=== PATIENT | female | born 1955 | race Caucasian/White ===

== ENCOUNTER → 2020-08-06 14:36 | Outpatient (CLI) | payer MEDICARE, SELFPAY ==
--- NOTE | ~2020-08-06 | XR_ITS ---
EXAMINATION: XR wrist LT min 3V DATE: 08/06/2020 15:03 INDICATION: Left wrist pain TECHNIQUE: Posteroanterior, ulnar deviation, oblique, and lateral views of the left wrist were obtain ed. COMPARISON: none FINDINGS: 3 mm ulnar minus variance. Alignment is otherwise normal. No fracture. Polyarticular osteoarthritis, moderate severity at the fifth proximal and distal interphalangeal joints and mild at the wrist, maryuri caphe, first carpometacarpal and multiple metacarpophalangeal joints. No cortical erosions to suggest an inflammatory arthritis. Diffuse osteopenia. Soft tissues are unremarkable. IMPRESSION: 1. Mild polyarticular osteoarthritis at the left wrist and carpus with moderate osteoarthritis at the interphalangeal joints in the fifth digit. Reviewed, dictated and finalized at location A. 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
== END ==
PROVIDERS: PCP Family Medicine; Visit Provider Physician Assistant
DX: M19.032 Primary osteoarthritis, left wrist (principal); M19.042 Primary osteoarthritis, left hand
CPT/HCPCS: 73110

== ENCOUNTER → 2020-10-14 11:07 | Outpatient (CLI) | payer MEDICARE, SELFPAY ==
--- NOTE | ~2020-10-14 | MM_ITS ---
EXAMINATION: MM screening [facility] BI w princess HISTORY: Screening TECHNIQUE: Craniocaudal and mediolateral oblique 3-D tomosynthesis images were obtained and synthetic 2-D images were generated. CAD analysis was submitted and interpreted. COMPARISON: Comparison to multiple prior studies sequentially, with oldest reviewed study dated 01/14. BREAST PARENCHYMAL COMPOSITION: The breasts are almost entirely fatty. FINDINGS: There are benign bilateral breast calcifications. There is no evidence of suspicious mass, calcification, or architectural distortion to suggest malignancy in either breast. There has been no suspicious interval change. IMPRESSION: 1. No mammographic evidence of malignancy. 2. Recommend routine screening mammography in one year. BI-RADS Category 2: Benign finding(s). Reviewed, dictated and finalized at location A. 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
== END ==
PROVIDERS: PCP Family Medicine; Visit Provider Family Medicine
DX: Z12.31 Encounter for screening mammogram for malignant neoplasm of breast (principal)
CPT/HCPCS: 77063; 77067

== ENCOUNTER → 2021-07-23 09:49 | Outpatient (CLI) | payer MEDICARE, SELFPAY ==
--- NOTE | ~2021-07-23 | XR_ITS ---
EXAMINATION: XR lumbar spine 2-3V DATE: 07/23/2021 10:16 INDICATION: Low back pain TECHNIQUE: Anteroposterior and lateral views of the lumbar spine, and cone-down lateral view of the l umbosacral junction were obtained. COMPARISON: None. FINDINGS: Bone alignment is normal. There appears to be an age-indeterminate superior endplate deform ity of the L2 vertebral body. There is mild loss of intervertebral disc space height at L2-3 and L5-S 1. Small degenerative osteophytes project from the anterior endplates of multiple vertebral bodies. IMPRESSION: 1. Possible age-indeterminate compression fracture of L2. Reviewed, dictated and finalized at location A.
== END ==
PROVIDERS: PCP Family Medicine; Visit Provider Family Medicine
DX: M54.50 Low back pain, unspecified (principal)
CPT/HCPCS: 72100

== ENCOUNTER 2021-07-30 00:42 | Day surgery (SDC) | payer MEDICARE, SELFPAY ==
[2021-07-10 13:05] VITALS: BMI 55.0
--- NOTE | 2021-07-29 13:05 | PM.HPGS ---
History of Present Illness History of Present Illness Consent: Risks, benefits, and alternatives have been discussed and questions answered. Patient agrees to proceed with procedure. Chief complaint: neoplasm screening Narrative: Faina Cuellar is a 65 year old female who was referred for colon cancer screening. This is her 1st colonoscopy Review of Systems Review of Systems: All systems reviewed & are unremarkable except as noted in HPI and below PMFSH Past Medical History Medical History DVT (deep venous thrombosis) Glucose intolerance (impaired glucose tolerance) Hyperlipidemia Hypertension Lumbar compression fracture Obesity, morbid, BMI 50 or higher Supraventricular tachycardia Unspecified asthma, uncomplicated Unspecified osteoarthritis, unspecified site Vitamin deficiency, unspecified Surgical History Surgical History History of knee replacement right and left: 2015 Family History Family History Mother Patient's mother is in good health Diabetes mellitus Hypertension Father Family history of malignant neoplasm Social History Social History Second hand tobacco smoke exposure: No Alcohol intake: current Alcohol use details: rare but occasionally Substance use: never Substance use type: does not use Living arrangements: with family Gender identity (if verbalized by the patient): Female Spiritual care concerns: No Meds Home Medications and Allergies Home Medications Medication Instructions Recorded Confirmed Type diltiazem HCl 180 mg capsule,24 180 mg PO DAILY #90 cap 03/10/21 07/10/21 Rx hr,extended release lisinopril 10 1 tablet PO DAILY #90 tablet 03/10/21 07/10/21 Rx mg-hydrochlorothiazide 12.5 mg tablet aspirin 325 mg tablet 325 mg PO DAILY 05/26/21 07/10/21 History meloxicam 15 mg tablet 15 mg PO DAILY #90 tablet 05/26/21 07/10/21 Rx baclofen 10 mg tablet 10 mg PO QHS #20 tablet 07/23/21 07/23/21 Rx Allergies Allergy/AdvReac Type Severity Reaction Status Date / Time Penicillins Allergy Unknown rash Verified 07/30/21 10:17 Exam Resp: Auscultation: clear to auscultation bilaterally Cardio: Rate: regular rate Rhythm: regular rhythm GI: GI Palp: Yes Soft to palpation and No Tenderness to palpation present (GI) Assessment and Plan Assessment and plan (1) Colon cancer screening: Code(s): Z12.11 - Encounter for screening for malignant neoplasm of colon Status: Acute Assessment and Plan: Colonoscopy with possible biopsy or polypectomy or cautery or injection of substances.
[2021-07-30 10:18] VITALS: BP 126/78; PULSE 78; RESP 22; TEMP 36.8; O2SAT 97
[2021-07-30] MEDS: LACTATED RINGERS 1,000 ML 150 ML IV CONT (10:30)
--- NOTE | 2021-07-30 10:49 | P.PNAN_ITS ---
Anes - Initial Pre Proc Eval Procedure: Operation Date: 07/30/21 11:00 Proposed Procedures p Screening Colonoscopy - Hayden Lanza MD Date/Time: 07/30/21 10:49 Surgeon: Hayden Lanza MD Pre Op Diagnosis: neoplasm screening Patient Data Age: 65 Gender: F Height: 1.57 m Weight: 136.6 kg Last Vital Signs Temp 98.2 F 07/30/21 10:18 Pulse 78 07/30/21 10:18 Resp 22 H 07/30/21 10:18 BP 126/78 07/30/21 10:18 Pulse Ox 97 07/30/21 10:18 Allergies Allergy/AdvReac Type Severity Reaction Status Date / Time Penicillins Allergy Unknown rash Verified 07/30/21 10:17 Home Medications Medication Instructions Recorded Confirmed Type diltiazem HCl 180 mg capsule,24 180 mg PO DAILY #90 cap 03/10/21 07/10/21 Rx hr,extended release lisinopril 10 1 tablet PO DAILY #90 tablet 03/10/21 07/10/21 Rx mg-hydrochlorothiazide 12.5 mg tablet aspirin 325 mg tablet 325 mg PO DAILY 05/26/21 07/10/21 History meloxicam 15 mg tablet 15 mg PO DAILY #90 tablet 05/26/21 07/10/21 Rx baclofen 10 mg tablet 10 mg PO QHS #20 tablet 07/23/21 07/23/21 Rx Patient hx anesthesia problems: none Family hx anesthesia problems: none Results Review: All pre-operative results and documents have been reviewed as part of the pre-operative evaluation. [facility] Past Medical History Medical History (Updated 07/28/21 @ 14:06 by Cayla Barry MD) DVT (deep venous thrombosis) Glucose intolerance (impaired glucose tolerance) Hyperlipidemia Hypertension Lumbar compression fracture Obesity, morbid, BMI 50 or higher Supraventricular tachycardia Unspecified asthma, uncomplicated Unspecified osteoarthritis, unspecified site Vitamin deficiency, unspecified Surgical History Surgical History History of knee replacement right and left: 2015 Family History Family History Mother Patient's mother is in good health Diabetes mellitus Hypertension Father Family history of malignant neoplasm Social History Social History (Reviewed 07/23/21 @ 08:29 by Nettie Vital Second hand tobacco smoke exposure: No Alcohol intake: current Alcohol use details: rare but occasionally Substance use: never Substance use type: does not use Living arrangements: with family Gender identity (if verbalized by the patient): Female Spiritual care concerns: No Anes - Eval Final PreProcedure Day of Procedure 07/30/21 10:49 Patient weight: super morbidly obese Lungs: clear to auscultation Airway: Mallampati scale class III Neurological: alert and oriented Last oral intake: >/= 8 hours ASA classification: IV Emergent: no Anesthetic plan: proceed Anesthesia type and monitoring: general GIVS and standard monitoring Results Review: All pre-operative results and documents have been reviewed as part of the pre-operative evaluation. Informed Consent: The patient's anesthetic plan and its attendant risks and benefits were discussed with the patient/family/POA. Questions were solicited and answers provided to the satisfaction of the patient/family/POA.
[2021-07-30 11:12] VITALS: BP 132/65; PULSE 110; RESP 22; O2SAT 96
[2021-07-30 11:21] VITALS: BP 105/73; PULSE 103; RESP 22; O2SAT 98
[2021-07-30 11:31] VITALS: BP 126/69; PULSE 89; RESP 22; O2SAT 99
== END 2021-07-30 11:50 | disposition home or self-care (01) ==
PROVIDERS: PCP Family Medicine; Visit Provider Internal Medicine Gastroenterology
PROC: 0DJD8ZZ Inspection of Lower Intestinal Tract, Via Natural or Artificial Opening Endoscopic (ICD-10-PCS; CPT 45378; principal; 2021-07-30 11:15)
DX: Z12.11 Encounter for screening for malignant neoplasm of colon (principal); K64.8 Other hemorrhoids; K57.30 Diverticulosis of large intestine without perforation or abscess without bleeding; Z79.82 Long term (current) use of aspirin; Z86.718 Personal history of other venous thrombosis and embolism; E78.5 Hyperlipidemia, unspecified; I10 Essential (primary) hypertension; I47.1 Supraventricular tachycardia; J45.909 Unspecified asthma, uncomplicated; M19.90 Unspecified osteoarthritis, unspecified site; E56.9 Vitamin deficiency, unspecified; E66.01 Morbid (severe) obesity due to excess calories; Z68.43 Body mass index [BMI] 50.0-59.9, adult
CPT/HCPCS: G0121; J2704; J7120

== ENCOUNTER 2021-08-03 12:19 | Outpatient (CLI) | payer MEDICARE, SELFPAY ==
--- NOTE | ~2021-08-03 | CT_ITS ---
EXAMINATION: CT lumbar spine wo con EXAM DATE: 08/03/2021 12:51 INDICATION: S32.000A - Wedge compression fracture of unspecified lumb.... Low back pain. TECHNIQUE: Spiral CT of the lumbar spine was performed without contrast. Axial, coronal and sagittal images lumbar spine were reviewed. The dose-length product (DLP) for this examination was 1151.56 m Gy-cm. The exposure was tailored according to patient size (auto mA exposure control), and iterativ e reconstruction (ASIR) was used as additional dose reduction technique. Correlation is made to lum r x-ray 07/23/2020. FINDINGS: Mild compression fracture superior endplate of L2 which appears chronic. There is moderate disc disease at L1-2, mild to moderate at L2-3, L3-4 and L5-S1. No spondylolysis. There are no osteoblastic or osteolytic lesions identified. There are no acute fractures identified. Level by level evaluation: T12-L1: There is a mild diffuse disc bulge. Facet arthropathy: None. Neural foraminal stenosis: No stenosis. Central canal stenosis: No stenosis. L1-L2: There is a mild diffuse disc bulge. Facet arthropathy: Mild. Neural foraminal stenosis: No stenosis. Central canal stenosis: Minimal. L2-L3: There is a mild diffuse disc bulge. Facet arthropathy: Moderate right, mild left. Neural foraminal stenosis: No stenosis. Central canal stenosis: Mild. L3-L4: There is a mild diffuse disc bulge. Facet arthropathy: Moderate bilateral. Neural foraminal stenosis: Mild to moderate right, mild left. Central canal stenosis: Mild to moderate. L4-L5: There is a mild diffuse disc bulge. Facet arthropathy: Moderate to severe. Neural foraminal stenosis: Mild to moderate left. Central canal stenosis: Mild. L5-S1: There is a mild diffuse disc bulge. Facet arthropathy: Moderate to severe. Neural foraminal stenosis: Mild to moderate left. Central canal stenosis: No stenosis. IMPRESSION: 1. Chronic L2 compression fracture. 2. Advanced lower lumbar facet arthropathy. 3. No acute findings. Reviewed, dictated and finalized at location A.
== END 2021-08-03 12:20 | disposition home or self-care (01) ==
LOC: ANHIMG 12:26
PROVIDERS: PCP Family Medicine; Visit Provider Family Medicine
DX: S32.010A Wedge compression fracture of first lumbar vertebra, initial encounter for closed fracture (principal); X58.XXXA Exposure to other specified factors, initial encounter
CPT/HCPCS: 72131

== ENCOUNTER 2021-08-18 16:12 | Outpatient (CLI) | payer MEDICARE, SELFPAY ==
--- NOTE | ~2021-08-18 | CT_ITS ---
EXAMINATION: CT abdomen pelvis w con DATE: 08/18/2021 17:31 INDICATION: Abdominal pain TECHNIQUE: Computed tomography (CT) of the abdomen and pelvis was performed with 100 mL Omnipaque-350 intravenous contrast. Automated exposure control and iterative reconstruction technique were employe d. The dose-length product was 1522.51 mGy-cm. COMPARISON: None FINDINGS: None discoid atelectasis at the lingula. Heart size is normal. No pericardial or pleural effusion. Ga llstone within the otherwise normal-appearing gallbladder. No dilation, wall thickening or pericholec ystic inflammatory stranding to suggest acute cholecystitis. Liver, spleen and bilateral adrenal glan ds are normal. There is subtle haziness to the fat surrounding the head of the otherwise normal-appea ring pancreas which could be seen with acute interstitial pancreatitis. Three nonenhancing cysts in t he right kidney the largest measuring 1.9 cm and 3 cm nonenhancing parapelvic cyst at the left renal hilum. There is moderate colonic diverticulosis with a sigmoid predominance. Suggestion of minimal in flammatory stranding round diverticula at the mid sigmoid colon equivocal for mild acute diverticulit is. Small bowel and appendix are normal. Bladder is normal. Calcifications within a 3.3 x 2.6 cm fibr oid at the right side of uterus which demonstrates age-related atrophy. Bilateral adnexa are normal f or age. No abscess or free intraperitoneal gas or fluid. No pathologically enlarged abdominal or pelv ic lymphadenopathy. chronic mild superior endplate compression fracture at L2. Mild to moderate lumba r spondylosis. There are bridging osteophytes at multiple levels in the spine, consistent with diffus e idiopathic skeletal hyperostosis (DISH). IMPRESSION: 1. Subtle haziness to the fat surrounding the head of the pancreas suspicious for acute interstitial pancreatitis. Correlate with amylase and lipase levels. 2. Cholelithiasis. 3. Diverticulosis with possible minimal inflammatory stranding surrounding a diverticulum at the mid sigmoid colon equivocal for mild acute radiographic uncomplicated diverticulitis. 4. Ventilated fibroid arising from the normal for age atrophic uterus. 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 Subtle haziness to the fat surrounding the head of the pancreas suspicious f or acute interstitial pancreatitis. Correlate with amylase and lipase levels. 2. Cholelithiasis. 3. Diverticulosis with possible minimal inflammatory stranding surrounding a di verticulum at the mid sigmoid colon equivocal for mild acute radiographic uncom plicated diverticulitis. 4. Ventilated fibroid arising from the normal for age atrophic uterus.
[2021-08-18 16:55] LABS: Estimated Glomerular Filt Rate > 60
[2021-08-18 17:54] LABS: Hemoglobin 12.6 g/dL (12.0-15.0); Mean Corpuscular HGB Conc 32.3 g/dl (32-36); Mean Corpuscular Hemoglobin 30.3 pg (26-34); Mean Corpuscular Volume 93.8 fl (80-100); Platelet Count Result 294 k/mm3 (150-375); Red Blood Count 4.16 M/mm3 (4.2-5.4); Red Cell Distribution Width 14.2 % (11.5-14.5); White Blood Count 10.6 K/mm3 (4.5-10.0)
[2021-08-18 18:11] LABS: Alanine Aminotransferase 16 U/L (4-35); Albumin Level 3.8 g/dL (3.5-5.1); Alkaline Phosphatase 77 U/L (38-126); Anion Gap 10 mmol/L (8-16); Aspartate Amino Transferase 20 U/L (14-36); Bilirubin,Total 0.8 mg/dL (0.2-1.3); Blood Urea Nitrogen 19 mg/dL (7-17); Calcium 8.9 mg/dL (8.4-10.2); Carbon Dioxide 26 mmol/L (22-30); Chloride 99 mmol/L (98-107); Estimated Glomerular Filt Rate > 60; Glucose 104 mg/dL (65-110); Lipase 117 U/L (23-300); Potassium 3.5 mmol/L (3.4-5.0); Sodium 135 mmol/L (137-145)
== END 2021-08-18 16:13 | disposition home or self-care (01) ==
LOC: ANHIMG 16:16
PROVIDERS: PCP Family Medicine; Visit Provider Family Medicine
DX: K80.20 Calculus of gallbladder without cholecystitis without obstruction (principal); K57.30 Diverticulosis of large intestine without perforation or abscess without bleeding
CPT/HCPCS: 74177; 80053; 83690; 85027; Q9967

== ENCOUNTER 2021-08-18 18:14 | Observation (INO) | payer MEDICARE, SELFPAY ==
--- NOTE | ~2021-08-18 | US_ITS ---
EXAMINATION: US abdomen limited EXAM DATE: 08/19/2021 09:55 INDICATION: Possible pancreatitis . TECHNIQUE: Multiple grayscale and Doppler images of the abdomen right upper quadrant were obtained (b y a technologist who performed the scan) and subsequently reviewed. There is no prior study for mag suther[place]. FINDINGS: The pancreatic head and body are normal in appearance. The pancreatic tail is not visualized. Please note that uncomplicated pancreatitis typically does not have ultrasound findings. The liver has norm al echogenicity and contour. There are no focal liver lesions identified. There is no evidence of intrahepatic biliary duct dilation. Portal venous flow was seen in the hepatopedal, normal direction and has normal Doppler waveform. No right-sided hydronephrosis. Common bile duct measures 4 mm, which is normal. The gallbladder wall is normal in thickness, with ex pected amount of distention. No sonographic evidence of pericholecystic fluid. There is cholelithia sis. Technologist performing exam reports patient did not demonstrate sonographic Paez's sign. P lease note that this sign is less reliable in patients who have received pain medication. IMPRESSION: 1. Cholelithiasis. Reviewed, dictated and finalized at location B. 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 Cholelithiasis.
[2021-08-18 18:31] VITALS: BP 142/114; PULSE 108; RESP 18; TEMP 36.6; O2SAT 98
[2021-08-18 20:27] VITALS: BP 127/61; PULSE 54; RESP 18; TEMP 36.6; O2SAT 98
--- NOTE | 2021-08-18 21:46 | ED.ABDPAIN ---
HPI - Abdominal Pain General Chief Complaint: Abdominal Pain Stated Complaint: sent from radiology for ?gallstones Time Seen by Provider: 08/18/21 21:10 Source: patient Mode of arrival: ambulatory Limitations: no limitations History of Present Illness HPI narrative: Patient is a 65-year-old female sent here by her primary care physician after an outpatient CT scan of her abdomen pelvis done today showing acute pancreatitis and acute diverticulitis according to patient. Patient states that she is been having upper abdominal pain for the past few days, 4 out of 10, dull, nonradiating. Patient denies any chest pain, shortness of breath, nausea, vomiting, diarrhea, fever or chills. Related Data Home Medications Medication Instructions Recorded Confirmed aspirin 325 mg tablet 325 mg PO DAILY 05/26/21 07/10/21 Allergies Allergy/AdvReac Type Severity Reaction Status Date / Time Penicillins Allergy Unknown rash Verified 08/18/21 14:53 Review of Systems Review of Systems: All systems reviewed & are unremarkable except as noted in HPI and below Constitutional: Constitutional: Denies body ache(s), Denies chills, Denies excessive sweating, Denies fatigue, Denies fever(s), Denies headache(s), Denies lethargy, Denies malaise, Denies weakness and Denies weight loss Eyes: Eyes: Denies blurry vision, Denies change in vision and Denies loss of vision ENT: Denies dizziness, Denies ear discharge, Denies headache(s), Denies lip swelling, Denies epistaxis, Denies nasal congestion, Denies neck pain, Denies throat swelling and Denies tongue swelling Cardiovascular: Cardiovascular: Denies chest pain, Denies chest pain at rest, Denies chest pain with activity, Denies diaphoresis, Denies rapid heart rate, Denies edema, Denies irregular heart rhythm, Denies lightheadedness, Denies palpitations, Denies dyspnea and Denies dyspnea on exertion Respiratory: Respiratory: Denies chest congestion, Denies cough, Denies hemoptysis, Denies dyspnea and Denies dyspnea on exertion Gastrointestinal: Gastrointestinal: Denies melena, Denies hematochezia, Denies diarrhea, Denies nausea, Denies vomiting and Denies hematemesis Musculoskeletal: Musculoskeletal: Denies abnormal gait, Denies deformity, Denies joint swelling, Denies limited range of motion, Denies neck pain and Denies numbness Neurologic: Denies Abnormal speech present, Denies abnormal gait, Denies confusion, Denies dizziness, Denies headache(s), Denies focal weakness, Denies loss of vision, Denies numbness, Denies Other visual disturbances, Denies Sensory deficit (Neuro) and Denies weakness Psychiatric: Psychiatric: Denies confusion, Denies depression, Denies auditory hallucinations, Denies homicidal ideation and Denies suicidal ideation Endocrine: Endocrine: Denies cold intolerance, Denies excessive sweating, Denies fatigue, Denies heat intolerance and Denies palpitations Hematologic/Lymphatic: Hematologic/Lymphatic: Denies easy bleeding and Denies easy bruising Allergic/Immunologic: Allergic/Immunologic: Denies lip swelling, Denies throat swelling and Denies tongue swelling PMFSH Past Medical History Medical History DVT (deep venous thrombosis) Glucose intolerance (impaired glucose tolerance) Hyperlipidemia Hypertension Lumbar compression fracture Obesity, morbid, BMI 50 or higher Supraventricular tachycardia Unspecified asthma, uncomplicated Unspecified osteoarthritis, unspecified site Vitamin deficiency, unspecified Surgical History Surgical History History of knee replacement right and left: 2016 Family History Family History Mother Patient's mother is in good health Diabetes mellitus Hypertension Father Family history of malignant neoplasm Social History Social History (Reviewed 08/18/21 @ 21:49 by Rodney Estrada,
[2021-08-18] MEDS: SODIUM CHLORIDE 0.9% IV 1,000 ML 999 ML IV CONT (22:24)
[2021-08-18 23:30] VITALS: BP 126/84; PULSE 92; RESP 16; O2SAT 97
--- NOTE | 2021-08-18 23:30 | PC.NURSE ---
Assumed care of pt at this time.
--- NOTE | 2021-08-18 23:30 | PC.NURSE ---
Assumed care of pt at this time. Pt alert and upright on stretcher, no complaints at this time. States she feels better than when she came in. Pts HR in 80s.
[2021-08-19] MEDS: metroNIDAZOLE 500 MG/ISO 100ML 500 MG/100 ML BAG 100 MG IVPB (00:04)
--- NOTE | 2021-08-19 00:36 | ADMGEN ---
This patient, Faina Cuellar, was admitted to [facility] Surg Room 314-01. Patient/family oriented to hospital policies and general routines including ID bracelet, bed and alarms, visiting hours, pain management, procedures, bathroom and other care routines, personal items, smoking policy, room service/diet, and visiting hours. Information on how to activate the Rapid Response Team has been discussed. Patient/Family are encouraged to report perceived risks to care and to ask questions if they do not understand what they are told or what they should do.
[2021-08-19] MEDS: LACTATED RINGERS 1,000 ML 200 ML IV CONT ×2 (01:47→12:58)
[2021-08-19 06:23] VITALS: BP 122/71; PULSE 97; RESP 16; TEMP 35.9; O2SAT 97
[2021-08-19] MEDS: ENOXAPARIN 40 MG/0.4 ML SYRINGE SUB-Q (11:04)
[2021-08-19 14:00] VITALS: BP 142/98; PULSE 105; RESP 16; TEMP 36.1; O2SAT 99
--- NOTE | 2021-08-19 15:52 | PM.IMHP ---
H&P: HPI History of Present Illness Date/Time: 08/19/21 15:52 Chief Complaint: Pt is a morbidly obese 65-year-old female with a past medical history of hypertension, DVT in the past (not requiring any further treatment), and SVT who presented emergency room for abdominal pain. Patient states on Tuesday night she ate pizza and a cookie and Tuesday she had chicken and mozzarella sticks and she woke up on Tuesday starting to have abdominal pain. She went to see her primary care physician about this pain. She said the pain was mostly in her epigastric but does span across to her right upper quadrant and left upper quadrant. Nothing made this pain better or worse. The pain was intermittent with no relieving or aggravating factors. She said the pain is a 5/10 dull rolling pain when it occurs and then goes away on its own. She has no nausea, vomiting diarrhea or constipation with this. She has never had a history of pancreatitis but her mom did have a history of pancreatic cancer. She does not drink alcohol very often and her last beer was many weeks ago. The pain has improved and she has not had any epigastric pain today. She did have some right upper quadrant pain about 20 minutes ago but that has resolved. She denies chest pain, shortness of breath, fevers, chills, or headache. Her blood pressure has been a little bit higher than normal. She has not eaten anything today. Review of Systems Review of Systems: All systems reviewed & are unremarkable except as noted in HPI and below PMFSH Past Medical History Medical History (Updated 08/19/21 @ 16:02 by Glenny Jiang PA-C) DVT (deep venous thrombosis) Unprovoked in 2019 no longer on anticoagulation Glucose intolerance (impaired glucose tolerance) Hyperlipidemia Hypertension Lumbar compression fracture Obesity, morbid, BMI 50 or higher Supraventricular tachycardia Unspecified asthma, uncomplicated Unspecified osteoarthritis, unspecified site Vitamin deficiency, unspecified Surgical History Surgical History History of knee replacement right and left: 2016 Family History Family History Mother Diabetes mellitus Hypertension Pancreatic cancer Father Family history of malignant neoplasm Social History Social History (Updated 08/19/21 @ 16:06 by Glenny Jiang PA-C) Social History: Patient does not drink, do drugs, and does not smoke. She quit smoking when she was 26. She would like to be a full code. Her POA is her Nahid. Smoking status: Never smoker Second hand tobacco smoke exposure: No Alcohol intake: former Alcohol use details: rare but occasionally Substance use: never Substance use type: does not use Gender identity (if verbalized by the patient): Female Spiritual care concerns: No Meds Home Medications and Allergies Home Medications Medication Instructions Recorded Confirmed Type diltiazem HCl 180 mg capsule,24 180 mg PO DAILY #90 cap 03/10/21 08/19/21 Rx hr,extended release lisinopril 10 1 tablet PO DAILY #90 tablet 03/10/21 08/19/21 Rx mg-hydrochlorothiazide 12.5 mg tablet aspirin 325 mg tablet 325 mg PO DAILY 05/26/21 08/19/21 History meloxicam 15 mg tablet 15 mg PO DAILY #90 tablet 05/26/21 08/19/21 Rx baclofen 10 mg tablet 10 mg PO QHS #20 tablet 08/06/21 08/19/21 Rx Allergies Allergy/AdvReac Type Severity Reaction Status Date / Time Penicillins Allergy Unknown rash Verified 08/18/21 14:53 Vital Signs Vital Signs - 24 hr 08/18/21 18:31 08/18/21 20:27 08/18/21 23:30 Temperature 97.9 F 97.9 F Pulse Rate 108 H 54 L 92 Respiratory Rate 18 18 16 Blood Pressure 142/114 H 127/61 126/84 Pulse Oximetry 98 98 97 08/19/21 06:23 08/19/21 14:00 Temperature 96.7 F L 96.9 F L Pulse Rate 97 105 H Respiratory Rate 16 16 Blood Pressure 122/71 142/98 H Pulse Oximetry 97 99
[2021-08-19 22:00] VITALS: BP 153/102; PULSE 108; RESP 18; TEMP 36.1; O2SAT 100
[2021-08-20] MEDS: LACTATED RINGERS 1,000 ML 50 ML IV CONT (01:05)
[2021-08-20 06:00] VITALS: BP 148/96; PULSE 100; RESP 20; TEMP 36.2; O2SAT 100
[2021-08-20 06:53] LABS: Hematocrit 39.5 % (37.0-47.0); Hemoglobin 13.1 g/dL (12.0-15.0); Mean Corpuscular HGB Conc 33.2 g/dl (32-36); Mean Corpuscular Hemoglobin 30.2 pg (26-34); Mean Platelet Volume 9.1 fl (7.4-10.4); Platelet Count Result 328 k/mm3 (150-375); Red Blood Count 4.34 M/mm3 (4.2-5.4); Red Cell Distribution Width 13.7 % (11.5-14.5); White Blood Count 7.1 K/mm3 (4.5-10.0)
[2021-08-20 07:02] LABS: Alanine Aminotransferase 19 U/L (4-35); Albumin Level 3.9 g/dL (3.5-5.1); Alkaline Phosphatase 82 U/L (38-126); Anion Gap 8 mmol/L (8-16); Aspartate Amino Transferase 25 U/L (14-36); Bilirubin,Total 0.5 mg/dL (0.2-1.3); Blood Urea Nitrogen 14 mg/dL (7-17); Calcium 9.3 mg/dL (8.4-10.2); Carbon Dioxide 30 mmol/L (22-30); Chloride 100 mmol/L (98-107); Cholesterol 179 mg/dL (0-200); Estimated CRCL calculation 90 ml/min; Estimated Glomerular Filt Rate > 60; Glucose 109 mg/dL (65-110); HDL Direct 47 mg/dL; Potassium 3.5 mmol/L (3.4-5.0); Sodium 138 mmol/L (137-145); Triglycerides 122 mg/dL (<150)
[2021-08-20 07:16] LABS: LDL Cholesterol Direct 97 mg/dL
[2021-08-20] MEDS: lisinopriL 10 MG TABLET PO (08:50)
[2021-08-20] MEDS: hydroCHLOROthiazide 12.5 MG CAPSULE PO (08:50)
[2021-08-20] MEDS: ASPIRIN 325 MG TABLET PO (08:50)
[2021-08-20] MEDS: dilTIAZem HCL CD 180 MG CAP.ER.24H PO (08:51)
[2021-08-20] MEDS: ENOXAPARIN 40 MG/0.4 ML SYRINGE SUB-Q (08:51)
[2021-08-20 11:01] VITALS: O2SAT 96
[2021-08-20 14:00] VITALS: BP 102/56; PULSE 98; RESP 16; TEMP 37.1; O2SAT 97
[2021-08-20 16:10] VITALS: BP 126/78
--- NOTE | 2021-08-20 16:45 | PM.DS ---
DS: Admitting Diagnosis Discharge Date 08/20/2021 Admitting Diagnosis Pancreatitis DS: Discharge Diagnosis Discharge Diagnosis (1) Acute pancreatitis: Qualifiers: Acute pancreatitis complication: no infection or necrosis Pancreatitis type: unspecified pancreatitis type Qualified Code(s): K85.90 - Acute pancreatitis without necrosis or infection, unspecified Code(s): K85.90 - Acute pancreatitis without necrosis or infection, unspecified Status: Acute Assessment and Plan: CT suspicious for acute interstitial pancreatitis, consistent with her symptoms -lipase remained normal, 117 -triglycerides within normal limits -no consistent or heavy alcohol use -RUQ ultrasound showed cholelithiasis without evidence of choledocholithiasis. LFTs and total bili within normal limits. -Initially managed with bowel rest and IV fluid rehydration. Diet was slowly advanced, fluids discontinued, and she was able to tolerate a low-fat diet which she will continue. -Case discussed with general surgery (initial provider spoke to Dr. Goodrich and I spoke to Dr. Vanessa), recommended outpatient follow-up for interval cholecystectomy. She will call to schedule a follow-up appointment promptly. Discussed that if symptoms recur she should be evaluated in the ED. patient aware of plan and comfortable with proceeding. (2) Cholelithiasis: Code(s): K80.20 - Calculus of gallbladder without cholecystitis without obstruction Status: Acute Assessment and Plan: As noted above (3) History of paroxysmal supraventricular tachycardia: Code(s): Z86.79 - Personal history of other diseases of the circulatory system Status: Acute Assessment and Plan: Noted in the past and she believes she saw Dr. Ivory -no acute issues -continue home diltiazem (4) Hypertension: Code(s): I10 - Essential (primary) hypertension Status: Acute Assessment and Plan: Blood pressure generally well controlled during admission. Continue home lisinopril. (5) Obesity, morbid, BMI 50 or higher: Code(s): E66.01 - Morbid (severe) obesity due to excess calories Status: Acute Assessment and Plan: Patient would benefit from weight loss. Continue low-fat diet DS: Summary Hospital Course Hospital Course: Date of admission: 08/18/2021 Date of discharge: 08/20/2021 Faina Cuellar is a 65-year-old male with a history of hypertension, hyperlipidemia, SVT who presented to the emergency department on 08/18/2021 with complaints of epigastric pain. She was referred by her PCP after having an outpatient CT scan suggestive of pancreatitis. On presentation to the ED, her vital signs were stable, she was afebrile, white blood cell count 10.6, additional CBC and BMP unremarkable, lipase 117. She was admitted to the hospitalist service for further evaluation and management. Please see above for further details. She had symptomatic improvement and was able to tolerate a low-fat diet. She will follow-up with General surgery promptly as an outpatient to schedule interval cholecystectomy. Given her overall improvement, she was determined to no longer require inpatient care and was felt to be stable for discharge. We discussed worrisome signs and symptoms for which to return and she was educated on her medications. She was discharged in hemodynamically stable condition on 08/20/2021. Time Spent with Patient Time attestation: Total time spent providing and/or coordinating discharge services: 45 minutes Time spent: Greater than 30 minutes Exam Narrative: Ms. Cuellar is an obese, well-appearing 65-year-old female who is lying supine in bed. She appears comfortable and is in NARD. Neuro: awake, alert and oriented x4, speech clear, no focal neuro deficits noted HEENMT: normocephalic, atraumatic, EOMI, sclerae anicteric, moist oral mucosa, tongue midline, nares patent Neck: supple, no
== END 2021-08-20 16:30 | disposition home or self-care (01) ==
LOC: ANHED 21:53 → ANH3MEDSUR 23:44
PROVIDERS: Physician Assistant; Admitting Provider Internal Medicine; Emergency Provider Emergency Medicine; PCP Family Medicine; Visit Provider Family Medicine
DX: K80.20 Calculus of gallbladder without cholecystitis without obstruction (principal); I10 Essential (primary) hypertension; E66.01 Morbid (severe) obesity due to excess calories; E78.5 Hyperlipidemia, unspecified; Z68.43 Body mass index [BMI] 50.0-59.9, adult
CPT/HCPCS: 36415; 74177; 76705; 80048; 80053; 80061; 80076; 83690; 85027; 96361; 96365; 96367; 96372; 99285; A9270; G0378; J0696; J1650; J7030; J7120; Q9967

== ENCOUNTER 2021-09-08 10:04 | Outpatient (CLI) | payer MEDICARE, SELFPAY ==
--- NOTE | 2021-09-08 10:30 | ECG_ITS ---
Measurements Intervals [place] Rate: 78 P: CO: 0 QRS: -24 QRSD: 79 T: -12 QT: 363 QTc: 414 Interpretive Statements ATRIAL FIBRILLATION VENTRICULAR PREMATURE COMPLEX DELAYED PRECORDIAL R/S TRANSITION LOW QRS VOLTAGE IN PRECORDIAL LEADS INFERIOR INFARCT, AGE INDETERMINATE BORDERLINE T WAVE ABNORMALITY- ANTERIOR LEADS ABNORMAL ECG Electronically Signed On 09-08-2021 10:28:41 [employer] by Kam Jones D.O.
[2021-09-08 11:15] LABS: Amylase 65 U/L (30-110)
[2021-09-08 11:24] LABS: Anion Gap 9 mmol/L (8-16); Blood Urea Nitrogen 18 mg/dL (7-17); Calcium 9.5 mg/dL (8.4-10.2); Carbon Dioxide 29 mmol/L (22-30); Chloride 97 mmol/L (98-107); Estimated Glomerular Filt Rate > 60; Glucose 113 mg/dL (65-110); Potassium 3.9 mmol/L (3.4-5.0); Sodium 135 mmol/L (137-145)
== END 2021-09-08 10:05 | disposition home or self-care (01) ==
LOC: ANHSURGERY 10:09
PROVIDERS: Anesthesiology; PCP Family Medicine; Visit Provider Surgery
DX: K80.20 Calculus of gallbladder without cholecystitis without obstruction (principal); Z79.899 Other long term (current) drug therapy; I10 Essential (primary) hypertension; Z01.818 Encounter for other preprocedural examination; R94.31 Abnormal electrocardiogram [ECG] [EKG]
CPT/HCPCS: 36415; 80048; 82150; 86850; 86900; 86901; 93005

== ENCOUNTER 2021-09-14 00:58 | Day surgery (SDC) | payer MEDICARE, SELFPAY ==
--- NOTE | 2021-09-04 13:19 | PC.NURSE ---
Report to the Outpatient Waiting Room, entrance under the green pavilion located off [facility], at time _0600__ on date _09/14/21_. OR Time: _0730 AM_. - You and your visitor will be asked a series of questions to screen for COVID 19 for your protection. - A mask is required within the hospital. - Only one visitor is allowed at this time. Patient visitors will be guided where to wait when not with patient. Preoperative COVID Testing Requirements: No COVID Test needed if: (proof is required; if not received patient will have Rapid Test prior to entry) - Patient has received COVID Vaccine at least 14 days prior to procedure date or - Patient has positive COVID test result within last 90 days of surgery date. COVID Test needed if above criteria is not met If not COVID vaccinated a COVID test must be conducted within 72 hours of surgery and patient is asked to isolate self from time of testing until procedure. You will go to the [facility] for your COVID testing. The [facility] is located at the corner of [address] [facility]. You will only be called if COVID results are positive and your surgeon may reschedule your elective surgery date. Patients may have clear liquids (water, carbonated beverages, clear teas, apple juice) until 3 hours prior to surgery ( 0430 AM) with a maximum of 20 ounces. - No food from midnight until time of surgery - Infants may have breast milk until 4 hours before surgery, formula 6 hours prior to surgery. - Children will be allowed to drink immediately following surgery. If applicable, please bring a bottle or sippy cup to assist with drinking. Juice, water, soda, and popsicles are readily available. For infants on formula, please bring formula the day of surgery. Pacifiers are allowed. Take the following medications with a SIP of water the morning of surgery: _DILTIAZEM____ Medications to discontinue per physician __MELOXICAM PER DR. ARANGO'S INSTRUCTIONS Date to take last dose Please no make-up, nail mauritanian, hairspray, perfume, deodorant, or body powder the day of surgery. No jewelry (including any body piercings) or valuables the day of surgery, leave them at home. Please take a shower or bath the night before, or the morning of, surgery with an antibacterial soap. Wear comfortable, loose fitting clothing. Children are encouraged to wear pajamas. - Jewelry must be removed prior to entering the operating room. Rings and piercings that are not removed may be cut off. - The hospital will not accept responsibility for valuables. - Please leave all valuables, including medications, at home the day of surgery. If you are going home after surgery, a licensed line haul driver must drive you home. - NO public transportation without another adult. - We recommend that an adult stay with you for 24 hours following discharge. - We also recommend that you do not drive, make important decision, drink alcoholic beverages, or take any drugs that were not prescribed by your health care provider for at least 24 hours after your discharge time. For Pediatric surgeries, we recommend two adults accompany the child home (only one inside the building at this time). Follow any additional instructions given to you from your surgeon. DECREASE ASPIRIN TO 81 MG DAILY 1 WEEK PRIOR TO SURGERY, HIBICLENS SHOWER AM OF SURGERY Telephone instructions given to ____PT and asked if any additional questions and then verbalized understanding. Patient advised to call surgeon office or pre surgery nurse liaison [phone] if any additional questions.
[2021-09-04 13:25] VITALS: BMI 55.0
[2021-09-14] VITALS (13 sets, daily range): BP systolic 79–118; BP diastolic 40–66; PULSE 54–91; RESP 12–20; TEMP 36.7–36.9; O2SAT 92–100
[2021-09-14] MEDS: ACETAMINOPHEN 500 MG TABLET 1000 MG PO (06:42)
[2021-09-14] MEDS: KETOROLAC 15 MG/ML VIAL (*BKC) IV PUSH (06:43)
--- NOTE | 2021-09-14 07:02 | WPDANESEPPF ---
Anes - Initial Pre Proc Eval Procedure: Operation Date: 09/14/21 07:30 Proposed Procedures p Laparoscopic Cholecystectomy - Elvira aVnessa MD Date/Time: 09/14/21 07:02 Surgeon: Elvira Vanessa MD Pre Op Diagnosis: Biliary Pancreatitis Cholelithiasis Patient Data Age: 65 Gender: F Height: 1.57 m Weight: 132.8 kg Allergies Allergy/AdvReac Type Severity Reaction Status Date / Time Penicillins Allergy Unknown rash Verified 09/14/21 06:13 Home Medications Medication Instructions Recorded Confirmed Type diltiazem HCl 180 mg capsule,24 180 mg PO DAILY #90 cap 03/10/21 09/14/21 Rx hr,extended release lisinopril 10 1 tablet PO DAILY #90 tablet 03/10/21 09/14/21 Rx mg-hydrochlorothiazide 12.5 mg tablet aspirin 325 mg tablet 325 mg PO DAILY 05/26/21 09/14/21 History meloxicam 15 mg PO DAILY PRN #90 tablet 08/20/21 09/14/21 Rx baclofen 10 mg tablet 10 mg PO QHS #20 tablet 09/01/21 09/14/21 Rx Patient hx anesthesia problems: none Family hx anesthesia problems: none Results Review: All pre-operative results and documents have been reviewed as part of the pre-operative evaluation. [facility] Past Medical History Medical History DVT (deep venous thrombosis) Unprovoked in 2018 no longer on anticoagulation Glucose intolerance (impaired glucose tolerance) Hyperlipidemia Hypertension Lumbar compression fracture Obesity, morbid, BMI 50 or higher Supraventricular tachycardia Unspecified asthma, uncomplicated Unspecified osteoarthritis, unspecified site Vitamin deficiency, unspecified Surgical History Surgical History H/O colonoscopy 2020 OA History of knee replacement right and left: 2015 Family History Family History Mother Diabetes mellitus Hypertension Pancreatic cancer Father Diabetes mellitus Hypertension Malignant neoplasm of prostate Social History Social History Social History: Patient does not drink, do drugs, and does not smoke. She quit smoking when she was 26. She would like to be a full code. Her POA is her Nahid. Smoking packs per day: 1 Smoking cigarettes per day: 20.0 Years smoked: 10 Smoking pack-years: 10.00 Smoking status: Former smoker Tobacco type: cigarettes Second hand tobacco smoke exposure: No Smoking end date: 10/03/82 Alcohol intake: former Alcohol use details: rare but occasionally Substance use: never Substance use type: does not use Living arrangements: with family Gender identity (if verbalized by the patient): Female Spiritual care concerns: No Anes - Eval Final PreProcedure Day of Procedure 09/14/21 07:02 Patient weight: super morbidly obese Heart: irregular rhythm Lungs: decreased breath sounds Airway: Mallampati scale class II Neurological: alert and oriented Last oral intake: >/= 8 hours ASA classification: III Emergent: no Anesthetic plan: proceed Anesthesia type and monitoring: general ETT and standard monitoring Results Review: All pre-operative results and documents have been reviewed as part of the pre-operative evaluation. Informed Consent: The patient's anesthetic plan and its attendant risks and benefits were discussed with the patient/family/POA. Questions were solicited and answers provided to the satisfaction of the patient/family/POA.
--- NOTE | 2021-09-14 07:21 | WPDHPUPDATE1 ---
History and Physical Update Update Date/Time: 09/14/21 07:21 History and Physical has been reviewed, including an updated exam of the patient. There are NO changes in the patient's condition. Risks, benefits, and alternatives have been discussed and questions answered. Patient agrees to proceed with procedure.
[2021-09-14] MEDS: LACTATED RINGERS 1,000 ML 30 ML IV CONT ×2 (07:25→08:55)
[2021-09-14] MEDS: ceFAZolin 3 GM/D5W 100 ML 100 ML IVPB (07:30)
[2021-09-14] MEDS: BUPIVACAINE HCL 0.5% PF 30 ML VIAL INFILTRATE (08:07)
--- NOTE | 2021-09-14 08:27 | P.OP_ITS ---
Procedure Note - Detailed Date of Procedure 09/14/21 Pre-op Diagnosis Biliary Pancreatitis, Cholelithiasis Post-op Diagnosis same Procedure Performed Laparoscopic cholecystectomy Surgeon Elvira Vanessa MD Anesthesia general Indications 65-year-old female initially presented with biliary pancreatitis, cholel ithiasis. Patient now presents for interval cholecystectomy Findings chronic cholecystitis, cholelithiasis Description of Procedure The patient was taken to the operating room placed in the supine position. After adequate induction of general anesthesia, the patient was prepped and draped in normal sterile fashion. A time-out was then performed to verify the patient's identity as well as the procedure being performed. I then made a 5 mm incision in the infraumbilical region. Through this, a Veress needle was placed into the peritoneal cavity and CO2 gas was then insufflated. After adequate pneumoperitoneum was achieved, the Veress needle was removed and a 5 mm optiview trocar was placed through this incision under direct visualization. I then placed the laparoscope through this trocar site and under direct visualization placed a further 12 mm subxiphoid port as well as 2 additional 5 mm ports in the right upper abdomen. The gallbladder was then identified and was noted to be moderately inflamed, distended, and had noted impacted gallstone at neck of gallbladder. I was able to place a grasper at the dome of the gallbladder and this was retracted anterior and cephalad up over the liver. A 2nd retractor was then placed at the infundibulum and retracted laterally, this allowed visualization of the triangle of Calot. I then was able to visualize the cystic duct in its entirety from its proximal insertion into the gallbladder, to its distal junction with the common hepatic/common bile duct junction. At this point, I carefully skeletonized the proximal cystic duct with the [place] dissector. I then clipped and transected the proximal cystic duct. Next I visualized the cystic artery. Again the artery was skeletonized, clipped, and transected. I then used the Bovie cautery to take down the peritoneal attachments of the gallbladder off the liver bed. This was somewhat difficult given the amount of inflammation in the posterior space. Once the gallbladder specimen was completely detached, an endo-pouch was placed through the 12 mm port site. I then placed the gallbladder specimen into the Endo pouch and removed the endo-pouch from the 12 mm port site. The specimen will now be sent to pathology for further review. I then copiously irrigated the right upper quadrant. Hemostasis was noted in the liver bed, the clips were noted to be in good position on both the cystic duct stump and the cystic artery stump. No other pathology was noted in the right upper quadrant. I then moved the laparoscope to the subxiphoid port. No iatrogenic injury or other pathology was noted in the lower abdomen. I then closed the 12 mm trocar site under direct visualization using the Kaiser cone and 0 Vicryl suture. At this point, the abdomen was desufflated and all ports removed. All port sites were then closed with 4.O Monocryl subcuticular sutures. Dermabond was placed on each incision. The patient tolerated the procedure well, was extubated in the operating room postoperative and will be transferred to the recovery room in stable condition Estimated Blood Loss 5 Drains No Packing No Pathology yes Complications No immediate complications Condition stable Disposition PACU
[2021-09-14] MEDS: fentaNYL CITRATE INJ (*CRX) 100 MCG/2 ML VIAL 25 MCG IV PUSH ×2 (09:12→09:18)
[2021-09-14] MEDS: ONDANSETRON INJ 4 MG/2 ML VIAL IV PUSH (09:12)
== END 2021-09-14 12:34 | disposition home or self-care (01) ==
PROVIDERS: PCP Family Medicine; Visit Provider Surgery
PROC: 0FT44ZZ Resection of Gallbladder, Percutaneous Endoscopic Approach (ICD-10-PCS; CPT 47562; principal; 2021-09-14 07:30)
DX: K80.10 Calculus of gallbladder with chronic cholecystitis without obstruction (principal); K85.10 Biliary acute pancreatitis without necrosis or infection; I10 Essential (primary) hypertension; E78.5 Hyperlipidemia, unspecified; I47.1 Supraventricular tachycardia; E66.01 Morbid (severe) obesity due to excess calories; Z68.43 Body mass index [BMI] 50.0-59.9, adult; Z87.891 Personal history of nicotine dependence
CPT/HCPCS: 47562; 88304; A9270; J0690; J1100; J1885; J2250; J2405; J2704; J2710; J3010; J7030; J7120

== ENCOUNTER 2022-07-25 05:45 | Emergency (ER) | payer MEDICARE, SELFPAY ==
--- NOTE | ~2022-07-25 | XR_ITS ---
EXAMINATION: XR elbow LT 2V DATE: 07/25/2022 06:53 INDICATION: Left elbow pain post fall onto outstretched hand. TECHNIQUE: Anteroposterior, two oblique and lateral views of the left elbow were obtained. COMPARISON: None. FINDINGS: Alignment is normal. Subtle interruption of the cortical margin of the frontal projection at the radi al side of the radial head neck junction consistent with nondisplaced fracture. The course of the fra cture is unable to be definitively ascertained. Suspect there is involvement of at least a small port ion of the articular surface. There is an associated left elbow joint effusion with displacement of t he anterior and posterior fat pads. IMPRESSION: 1. Nondisplaced fracture at the right radial head, likely with intra-articular extension given the pr oximity to the joint space and the presence of a prominent elbow joint effusion. Reviewed, dictated and finalized at location A. IMPRESSION: 1. Nondisplaced fracture at the right radial head, likely with intra-articular extension given the proximity to the joint space and the presence of a prominen t elbow joint effusion.
--- NOTE | ~2022-07-25 | XR_ITS ---
EXAMINATION: XR hand LT min 3V DATE: 07/25/2022 06:53 INDICATION: Left hand pain post fall onto outstretched hand. TECHNIQUE: Posteroanterior, oblique and lateral views of the left hand were obtained. COMPARISON: Left wrist radiographs dated 08/06/2020 FINDINGS: Diffuse osteopenia. Unchanged 2 mm ulnar minus variance. Alignment is otherwise normal. No fracture. Polyarticular osteoarthritis, severe at the first carpometacarpal joint, moderate at the triscaphe anahy int and mild at the wrist and midcarpal joints. Additional severe erosive osteoarthritis at the secon d and third distal interphalangeal joints where there erosions with gullwing configuration at the bas e of the distal phalanges. Additional mild to moderate osteoarthritis at the remaining interphalangea l joints and mild osteoarthritis at the metacarpophalangeal joints. IMPRESSION: 1. No acute osseous abnormality. 2. Polyarticular osteoarthritis including severe erosive osteoarthritis at the second and third dista l interphalangeal joints and severe osteoarthritis at the first carpometacarpal joint. Reviewed, dictated and finalized at location A. IMPRESSION: 1. No acute osseous abnormality. 2. Polyarticular osteoarthritis including severe erosive osteoarthritis at the second and third distal interphalangeal joints and severe osteoarthritis at the first carpometacarpal joint.
[2022-07-25 05:45] VITALS: BP 124/65; PULSE 85; RESP 18; TEMP 36.6; O2SAT 99
--- NOTE | 2022-07-25 06:34 | ED.GENADULT ---
HPI - General Adult General Chief complaint: Fall <Ashish Blandon MD - Last Filed: 07/27/22 14:32> Stated complaint: fall last pm onto left arm <Ashish Blandon MD - Last Filed: 07/27/22 14:32> Time Seen by Provider: 07/25/22 07:49 <Ashish Blandon MD - Last Filed: 07/27/22 14:32> History of Present Illness HPI narrative: This is a 66-year-old female with bilateral knee replacements he walks with a cane presented to ED after a fall last night. Patient was walking and tripped. She tried to brace herself with her left hand. She is now experiencing pain in her left hand and elbow. Patient denies head trauma. She did not bring him any headache, neck pain, back pain, and chest pain. <Ashish Blandon MD - Last Filed: 07/27/22 14:32> Related Data Home medications: Home Medications Medication Instructions Recorded Confirmed aspirin 325 mg tablet 325 mg PO DAILY 05/26/21 12/04/21 <Ashish Blandon MD - Last Filed: 07/27/22 14:32> Allergies/adverse reactions: Allergies Allergy/AdvReac Type Severity Reaction Status Date / Time Penicillins Allergy Unknown rash Verified 07/25/22 05:50 <Ashish Blandon MD - Last Filed: 07/27/22 14:32> Review of Systems Review of Systems: CONSTITUTIONAL: Denies night sweats. EYES: No eye pain ENT: Denies rhinorrhea CARDIOVASCULAR: Denies palpitations RESPIRATORY: Denies hemoptysis GASTROINTESTINAL: Denies hematemesis GENITOURINARY: Denies hematuria. SKIN: Denies rash MUSCULOSKELETAL: Denies myalgia. NEUROLOGIC: Denies weakness. PSYCHIATRIC: Denies delusions <Ashish Blandon MD - Last Filed: 07/27/22 14:32> [facility] Past Medical History Medical History: Medical History DVT (deep venous thrombosis) Unprovoked in 2019 no longer on anticoagulation Glucose intolerance (impaired glucose tolerance) Hyperlipidemia Hypertension Lumbar compression fracture Obesity, morbid, BMI 50 or higher Prediabetes Supraventricular tachycardia Unspecified asthma, uncomplicated Unspecified osteoarthritis, unspecified site Vitamin deficiency, unspecified <Ashish Blandon MD - Last Filed: 07/27/22 14:32> Surgical History Surgical History: Surgical History H/O colonoscopy 2020 OA History of cholecystectomy History of knee replacement right and left: 2015 <Ashish Blandon MD - Last Filed: 07/27/22 14:32> Family History Family History: Family History Mother Diabetes mellitus Hypertension Pancreatic cancer Father Diabetes mellitus Hypertension Malignant neoplasm of prostate <Ashish Blandon MD - Last Filed: 07/27/22 14:32> Social History Social History: Social History Social History: Patient does not drink, do drugs, and does not smoke. She quit smoking when she was 26. She would like to be a full code. Her POA is her Nahid. Smoking packs per day: 1 Smoking cigarettes per day: 20.0 Years smoked: 10 Smoking pack-years: 10.00 Smoking status: Former smoker (1ppd for 10 years stopped 40 years ago) Tobacco type: cigarettes Second hand tobacco smoke exposure: No Smoking end date: 10/03/82 Alcohol intake: former Alcohol use details: rare but occasionally Substance use: never Substance use type: does not use Gender identity (if verbalized by the patient): Female Spiritual care concerns: No <Ashish Blandon MD - Last Filed: 07/27/22 14:32> Exam Narrative: APPEARANCE: No apparent distress. Head atraumatic. EYES: PERRLA/EOMI, NOSE: Normal no drainage NECK: Supple, Trachea midline RESPIRATORY: CTAB, No increased work of breathing. CARDIOVASCULAR: S1S2 appreciated ABDOMINAL: Soft, nontender, nondistended, MUSCULOSKELETAl: Focal exam of the left upper extremity r
[2022-07-25] MEDS: HYDROcodone/acetaminophen (*CRX) 5-325 MG TABLET 2 TAB PO (06:50)
[2022-07-25] MEDS: IBUPROFEN 600 MG TABLET PO (08:15)
[2022-07-25] MEDS: HYDROcodone/acetaminophen (*CRX) 5-325 MG TABLET 1 TAB PO (08:16)
[2022-07-25 08:45] VITALS: BP 114/71; PULSE 73; RESP 16; O2SAT 95
--- NOTE | 2022-08-04 08:41 | PC.NURSE ---
LATE ENTRY This note is being entered to document information to the patient's record. The following information was omitted on [07/25/22], by [Maggi Winn]. VORB Left arm long arm splint/ Dr. Rodney. Long arm posterior splint applied to left arm by tech with Dr. Rodney supervision per his note.
== END 2022-07-25 09:00 | disposition home or self-care (01) ==
PROVIDERS: Emergency Provider Emergency Medicine; PCP Family Medicine
DX: S52.125A Nondisplaced fracture of head of left radius, initial encounter for closed fracture (principal); E78.5 Hyperlipidemia, unspecified; I10 Essential (primary) hypertension; J45.909 Unspecified asthma, uncomplicated; R73.03 Prediabetes; E55.9 Vitamin D deficiency, unspecified; M19.042 Primary osteoarthritis, left hand; M18.9 Osteoarthritis of first carpometacarpal joint, unspecified; E66.01 Morbid (severe) obesity due to excess calories; Z68.42 Body mass index [BMI] 45.0-49.9, adult; Z86.718 Personal history of other venous thrombosis and embolism; Z96.653 Presence of artificial knee joint, bilateral; Z87.891 Personal history of nicotine dependence; W01.0XXA Fall on same level from slipping, tripping and stumbling without subsequent striking against object, initial encounter
CPT/HCPCS: 29105; 29125; 73070; 73130; 99284; A4565; A9270

== ENCOUNTER 2023-11-29 08:06 | Outpatient (CLI) | payer MEDICARE, SELFPAY ==
--- NOTE | ~2023-11-29 | NM_ITS ---
EXAMINATION: NM joseph stress w perfusion DATE: 11/29/2023 10:42 INDICATION: Other forms of dyspnea. TECHNIQUE: Rest images were obtained following intravenous administration of 9.9 mCi Tc99m tetrofosmi n (Myoview). The patient was infused intravenously with Lexiscan (regadenoson). Then, 31.1 mCi Tc99m tetrofosmin (Myoview) was administered intravenously, and stress images were obtained. Data was recon structed into short axis and horizontal and vertical long axis SPECT images. Gated SPECT images were also obtained. COMPARISON: CT abdomen and pelvis 08/18/2021 FINDINGS: There is no definite reversible or fixed perfusion abnormality to suggest ischemia or infar ction. There is no segmental wall motion abnormality. Left ventricular ejection fraction measures > 70%. IMPRESSION: 1. No definite ischemia or infarct. 2. Normal left ventricular ejection fraction measuring > 70%. Reviewed, dictated and finalized at location A. 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
--- NOTE | 2023-11-29 08:34 | EST_ITS ---
Patient Info Name: Faina Cuellar Age: 68 years : 1955 Gender: Female Ht: 61 in Wt: 278 lbs BSA: 2.42 m2 HR: 108 bpm BP: 169 / 109 mmHg Heart Rhythm: Atrial Fibrillation Exam Date: 11/29/2023 9:17 AM Exam Location: Echo Lab Patient Status: Outpatient Admit Date: 11/29/2023 Staff Ordering Physician: Kam Jones DO Attending Provider: Kam Jones DO Exercise Technologist: Ava Reeves CT Exercise Physician: Kam Jones DO Exam Type: CA stress joseph w NM Study Info Indications Z01.810 - Encounter for preprocedural cardiovascular examination R06.09 - Other forms of dyspnea A regadenoson stress test was performed. Summary 1. 1. Negative lexiscan stress test for ischemic ST changes by ECG criteria. 2. 2. Baseline hypertension. 3. 3. Nuclear scan to follow and will be reported separately. Please correlate with it. 4. 4. Patient informed of the above results. Protocol: Lexiscan Stress ECG Details Stage: REST Duration (min): 2 min : 22 sec HR (bpm): 106 SBP (mmHg): 169 DBP (mmHg): 109 Stage: REST Duration (min): 17 min : 26 sec HR (bpm): 119 SBP (mmHg): 169 DBP (mmHg): 109 Stage: STAGE 1 Duration (min): 0 min : 59 sec HR (bpm): 150 SBP (mmHg): 163 DBP (mmHg): 108 Stage: RECOVERY Duration (min): 1 min : 0 sec HR (bpm): 147 SBP (mmHg): 163 DBP (mmHg): 108 Stage: RECOVERY Duration (min): 2 min : 0 sec HR (bpm): 135 SBP (mmHg): 163 DBP (mmHg): 108 Stage: RECOVERY Duration (min): 2 min : 51 sec HR (bpm): 140 SBP (mmHg): 161 DBP (mmHg): 105 Rest HR: 119 bpm Peak HR: 157 bpm Rest Sys BP: 169 mmHg Peak Sys BP: 163 mmHg Max Pred HR: 150 bpm % Max Pred HR: 105 % Target HR: 128 bpm Max RPP: 25,591 bpm*mmHg Termination Reason: Completed protocol Cardiac Symptoms: Shortness of breath Total Time: 1 min : 0 sec Rest Marshall BP: 109 mmHg Peak Marshall BP: 108 mmHg Total Dose: 0.4 mg Resting ECG Atrial fibrillation. Stress ECG No ST changes. Arrhythmias No other arrhthmias. Report Signatures
== END 2023-11-29 08:07 | disposition home or self-care (01) ==
PROVIDERS: PCP Family Medicine; Visit Provider Internal Medicine Cardiovascular Disease
DX: R06.09 Other forms of dyspnea (principal); I10 Essential (primary) hypertension
CPT/HCPCS: 78452; 93017; A9502; J2785

== ENCOUNTER 2024-01-20 09:04 | Outpatient (CLI) | payer MEDICARE, SELFPAY ==
--- NOTE | 2024-01-20 09:44 | ECHO_ITS ---
Patient Info Name: Faina Cuellar Age: 68 years : 1955 Gender: Female Ht: 60 in Wt: 275 lbs BSA: 2.39 m2 HR: 103 bpm BP: 143 / 83 mmHg Heart Rhythm: Atrial Fibrillation Technical Quality: Fair Exam Date: 01/20/2024 10:07 AM Exam Location: Echo Lab Patient Status: Outpatient Admit Date: 01/20/2024 Staff Ordering Physician: Kam Jones DO Staff Electrical Engineer: María Bates RDCS Attending Provider: Kam Jones DO Referring Physician: Robert BROWN; Exam Type: CA echo doppler color flow Study Info Indications - paroxysmal afib Complete two-dimensional, color flow and Doppler transthoracic echocardiogram is performed. Summary 1. Complete two-dimensional, color flow and Doppler transthoracic echocardiogram is performed. 2. Left ventricular chamber dimension is normal. 3. Left ventricular systolic function is normal, estimated at 65-70%. 4. The left ventricular diastolic function is normal. 5. E/e' 6 is not elevated. 6. Atrial fibrillation. 7. Left atrial chamber dimension is moderately enlarged. 8. Right atrial chamber dimension is mildly enlarged. 9. There is mild mitral valve regurgitation. 10. There is trace tricuspid valve regurgitation. 11. No pulmonary hypertension, estimated pulmonary arterial systolic pressure is 25 mmHg. Left Ventricle Atrial fibrillation. E/e' 6 is not elevated. Left ventricular chamber dimension is normal. Left ventricular systolic function is normal, estimated at 65-70%. The left ventricular diastolic function is normal. Right Ventricle Right ventricular chamber dimension is normal. Right ventricular systolic function is normal. Left Atria Left atrial chamber dimension is moderately enlarged. Right Atria Right atrial chamber dimension is mildly enlarged. Aortic Valve The aortic valve is trileaflet. There is no aortic valve stenosis. There is no aortic valve regurgitation. Pulmonic Valve There is no pulmonic regurgitation. Mitral Valve There is no mitral valve stenosis. There is mild mitral valve regurgitation. Tricuspid Valve There is trace tricuspid valve regurgitation. No pulmonary hypertension, estimated pulmonary arterial systolic pressure is 25 mmHg. Pericardium/Pleural There is no pericardial effusion. Inferior Vena Cava Normal inferior vena cava with >50% collapse upon inspiration consistent with normal right atrial pressure, 5 mmHg. Aorta The aortic root size at the sinus of Valsalva is normal. Left Ventricular Outflow Tract Name Value Normal LVOT 2D LVOT Diameter 2.0 cm LVOT Doppler LVOT Peak Gradient 6 mmHg LVOT Mean Gradient 3 mmHg LVOT VTI 23 cm LVOT VTI/AV VTI Ratio 1.0 LVOT Stroke Volume 70 ml LVOT CO 14.1 l/min LVOT CI 5.9 l/min/m2 Pulmonic Valve Name Value Normal RVOT Doppler RVOT Peak Gradient 2 mmHg PV Doppler PV Peak Gradient 2 mmHg Mitral Valve Name Value Normal MV Doppler MV Decel [facility] [facility] 461 cm/s2 MV PHT 48 ms MV Area (PHT) 4.6 cm2 4.0-5.0 MV Diastolic Function MV E Peak Velocity 76 cm/s MV A Peak Velocity 4 cm/s MV E/A 18.9 MV Decel Time 166 ms Tricuspid Valve Name Value Normal TV Regurgitation Doppler TR Peak Velocity 226 cm/s TR Peak Gradient 20 mmHg Estimated PAP/RSVP RA Pressure 5 mmHg <=5 PA Systolic Pressure 25 mmHg <36 RV Systolic Pressure 25 mmHg <36 Aorta Name Value Normal Ascending Aorta Ao Root Diameter (MM) 2.9 cm Ao Root Diam Index (MM) 1.2 cm/m2 Aortic Valve Name Value Normal AV Doppler AV Peak Velocity 119 cm/s AV Peak Gradient 6 mmHg AV Mean Gradient 3 mmHg AV VTI 24 cm AV Area (Cont Eq VTI) 2.9 cm2 >=3.0 AV Area (Cont Eq Andre) 3.1 cm2 AV Regurgitation 2D LVOT Area 3.0 cm2 Ventricles Name Value Normal LV Dimensions 2D/MM IVS Diastolic Thickness (2D) 1.1 cm 0.6-1.0 LVID Diastole (2D) 4.0 cm 3.8-5.2 LVIW Diastolic Thickness (2D) 0.8 cm 0.6-0.9 LVID Systole (2D) 2.6 cm 2.2-3.5 LVOT Diameter 2.0 cm LV Mass (2D Cubed) 119.85 g 67.00-162.00 LV Mass Index (2D Cubed) 50 g/m2 43-95 Relative Wall Thickness (2D) 0.42 LV Fractional Shortening/Ejection Fraction 2D/MM LV Fractional Shortening (2D) 35 % 27-45 LV EF (2D Teicholz) 65 % 54-74 LV Diastolic Volume (4C MOD) 65 ml LV EF (4C MOD) 65 % LV Diastolic Volume (2C MOD) 52 ml LV EF (2C MOD) 67 % LV Diastolic Volume (BP MOD) 58 ml 46-106 LV Diastolic Volume Index (BP MOD) 24 ml/m2 29-61 LV Systolic Volume (BP MOD) 19 ml 14-42 LV Systolic Volume Index (BP MOD) 8 ml/m2 8-24 LV EF (BP MOD) 67 % 54-74 LV Diastolic Length (4C) 7.9 cm LV Systolic Length (4C) 6.1 cm LV Stroke Volume (4C MOD) 42 ml Atria Name Value Normal LA Dimensions LA Dimension (MM) 5.1 cm 2.7-3.8 LA Volume (4C A-L) 102 ml LA Volume (BP A-L) 97 ml RA Dimensions RA Area (4C) 22.6 cm2 <=18.0 Report Signatures
== END 2024-01-20 09:05 | disposition home or self-care (01) ==
LOC: ANHCARD 09:06
PROVIDERS: PCP Family Medicine; Visit Provider Internal Medicine Cardiovascular Disease
DX: I48.0 Paroxysmal atrial fibrillation (principal); R93.1 Abnormal findings on diagnostic imaging of heart and coronary circulation; I34.0 Nonrheumatic mitral (valve) insufficiency; I07.1 Rheumatic tricuspid insufficiency
CPT/HCPCS: 93306